=== PATIENT | male | born 1990 | race Caucasian/White ===

== ENCOUNTER 2017-11-27 19:53 | Inpatient (IN) | payer MEDICARE, MEDICAID ==
[~2017-11-27] VITALS: Ht 170.2 cm; Wt 69.9 kg
[~2017-11-27 19:53] MED LIST: ARIP10TA8 PO
[2017-11-27 20:19] LABS: BASOPHILS # (AUTO) 0.02 K/uL (0.00-0.20); BASOPHILS % (AUTO) 0.3 % (0.0-2.0); EOSINOPHILS # (AUTO) 0.09 K/uL (0.00-0.70); EOSINOPHILS % (AUTO) 1.12 % (1.0-6.0); HEMATOCRIT 43.8 % (41-53); HEMOGLOBIN 14.7 g/dL (13.5-17.5); LYMPHOCYTES # (AUTO) 2.3 K/uL (1.0-4.8); LYMPHOCYTES % (AUTO) 28.2 % (22.0-44.0); MEAN CORPUSCULAR HEMOGLOBIN 30.6 pg (26.0-34.0); MEAN CORPUSCULAR HGB CONC 33.5 G/dL (31.0-37.0); MEAN CORPUSCULAR VOLUME 91 fL (80-100); MONOCYTES # (AUTO) 0.5 K/uL (0.1-1.0); MONOCYTES % (AUTO) 5.7 % (2.0-9.0); NEUTROPHILS # (AUTO) 5.3 K/uL (1.8-7.7); NEUTROPHILS % (AUTO) 64.7 % (40.0-70.0); PLATELET COUNT (AUTO) 278 K/uL (150-450); RED BLOOD CELL COUNT(AUTO) 4.81 MIL/uL (4.50-5.90); RED CELL DISTRIBUTION WIDTH 12.7 % (11.5-14.5)
[2017-11-27 20:32] LABS: ANION GAP 8 mmol/L (8-16); CALCIUM, TOTAL 9.4 mg/dL (8.8-10.5); CARBON DIOXIDE 30 mmol/L (22-29); CHLORIDE 100 mmol/L (98-107); CREATININE 0.94 mg/dL (0.60-1.30); GLOMERULAR FILTR. RATE CALC > 60 mL/min (>60); GLUCOSE,RANDOM 133 mg/dL (70-110); POTASSIUM 3.9 mmol/L (3.5-5.1); SODIUM SERUM 138 mmol/L (136-145); UREA NITROGEN, BLOOD 18 mg/dL (7-18)
[2017-11-27 20:38] LABS: ALANINE AMINOTRANSFERASE 21 U/L (12-78); ALBUMIN 4.4 g/dL (3.4-5.0); ALKALINE PHOSPHATASE 95 U/L (46-116); ASPARTATE AMINOTRANSFERASE 16 U/L (15-37); BILIRUBIN,TOTAL 0.5 mg/dL (0.1-1.0); TOTAL PROTEIN, SERUM 7.9 g/dL (6.4-8.2)
[2017-11-27 20:59] LABS: AMPHET/METH SCREEN,URINE NEGATIVE (NEGATIVE); BARBITURATE SCREEN, URINE NEGATIVE (NEGATIVE); BENZODIAZEPINES SCREEN,URINE NEGATIVE (NEGATIVE); CANNABINOID SCREEN,URINE NEGATIVE (NEGATIVE); COCAINE SCREEN,URINE NEGATIVE (NEGATIVE); METHADONE SCREEN, URINE NEGATIVE (NEGATIVE); OPIATE SCREEN,URINE NEGATIVE (NEGATIVE)
[2017-11-27] MEDS ORDERED: LORazepam 2 MG TABLET PO ONE (21:00)
[2017-11-27] MEDS ORDERED: DiphenhydrAMINE HCL 25 MG CAPSULE PO ONE (21:00)
[2017-11-27 21:04] LABS: PHENCYCLIDINE SCREEN,URINE NEGATIVE (NEGATIVE)
[2017-11-27] MEDS ORDERED: ZOLPIDEM TARTRATE 10 MG TABLET PO PRN (21:15)
[2017-11-27] MEDS ORDERED: LORazepam 2 MG TABLET PO PRN (21:15)
[2017-11-27] MEDS ORDERED: HALOPERIDOL 5 MG TABLET PO PRN (21:15)
[2017-11-27 21:31] LABS: APPEARANCE,URINE CLEAR (CLEAR); BILIRUBIN,URINE NEGATIVE (NEGATIVE); GLUCOSE, URINE (UA) NEGATIVE (NEGATIVE); KETONES,URINE TRACE mg/dL (NEGATIVE); LEUKOCYTE ESTERASE ,URINE NEGATIVE (NEGATIVE); NITRATE,URINE NEGATIVE (NEGATIVE); OCCULT BLOOD,URINE NEGATIVE (NEGATIVE); PROTEIN,URINE NEGATIVE (NEGATIVE); UROBILINOGEN,URINE 0.2 mg/dL (<=1.0)
[2017-11-27] MEDS ORDERED: ARIPiprazole 10 MG TABLET PO ONE (21:45)
[2017-11-27 21:46] LABS: CHOL/HDL RATIO 3.2 (4.2-7.3); THYROID STIMULATING HORMONE 1.26 uIU/mL (0.36-3.74)
[2017-11-27] MEDS ORDERED: INFLUENZA VIRUS VACCINE QVS 2017-18 (3YR+)/PF 60 MCG/0.5 ML SYRINGE IM ONE (23:15)
[2017-11-28 00:13] VITALS: BP 136/82
[2017-11-28 08:26] VITALS: BP 116/69
[2017-11-28] MEDS ORDERED: ARIPiprazole ER SUSPENSION 400 MG VIAL IM SCH (09:00)
[2017-11-28] MEDS: ARIPiprazole 10 MG TABLET PO SCH (14:44)
[2017-11-28 16:01] VITALS: BP 112/69
[2017-11-29 06:37] VITALS: BP 120/62
[2017-11-29] MEDS: ARIPiprazole 10 MG TABLET PO SCH (08:20)
[2017-11-29 08:32] VITALS: BP 120/70
[2017-11-29 16:15] VITALS: BP 115/65
[2017-11-30 00:59] VITALS: BP 111/60
[2017-11-30 08:42] VITALS: BP 104/67
[2017-11-30] MEDS: ARIPiprazole 10 MG TABLET PO SCH (08:56)
[2017-11-30 15:53] VITALS: BP 113/75
[2017-12-01 06:40] VITALS: BP 105/65
[2017-12-01] MEDS: ARIPiprazole 10 MG TABLET PO SCH (08:29)
[2017-12-01 08:57] VITALS: BP 114/60
[2017-12-01 16:04] VITALS: BP 120/62
[2017-12-02 00:10] VITALS: BP 101/60
[2017-12-02] MEDS: ARIPiprazole 10 MG TABLET PO SCH (08:06)
[2017-12-02 08:23] VITALS: BP 117/60
[2017-12-02 16:08] VITALS: BP 105/61
[2017-12-03 01:10] VITALS: BP 110/61
[2017-12-03 08:02] VITALS: BP 124/64
[2017-12-03] MEDS: ARIPiprazole 10 MG TABLET PO SCH (08:06)
[2017-12-03 08:31] VITALS: BP 124/64
[2017-12-03] MEDS ORDERED: ARIP300S IM (09:13)
== END 2017-12-03 10:30 | disposition home or self-care (01) | DRG 885 ==
LOC: EMS 19:54 → B2X 21:42
DX: F31.4 Bipolar disorder, current episode depressed, severe, without psychotic features (principal); E55.9 Vitamin D deficiency, unspecified; J45.909 Unspecified asthma, uncomplicated; K59.00 Constipation, unspecified; R73.9 Hyperglycemia, unspecified; E87.6 Hypokalemia; Z79.899 Other long term (current) drug therapy
CPT/HCPCS: 84443; 99285; G0480; J0401

== ENCOUNTER 2018-05-26 17:32 | Inpatient (IN) | payer MEDICARE, MEDICAID ==
[~2018-05-26] VITALS: Ht 171.4 cm; Wt 65.3 kg
[~2018-05-26 17:32] MED LIST changes: +ARIP300S IM
[2018-05-26] MEDS ORDERED: LORazepam 2 MG TABLET PO PRN (18:45)
[2018-05-26] MEDS ORDERED: QUEtiapine FUMARATE 100 MG TABLET PO PRN (18:45)
[2018-05-26] MEDS ORDERED: ZOLPIDEM TARTRATE 10 MG TABLET PO PRN (18:45)
[2018-05-26 21:00] VITALS: BP 133/57
[2018-05-27 01:09] VITALS: BP 131/68
[2018-05-27 08:58] VITALS: BP 121/71
[2018-05-27 09:05] LABS: AMPHET/METH SCREEN,URINE NEGATIVE (NEGATIVE); BARBITURATE SCREEN, URINE NEGATIVE (NEGATIVE); BENZODIAZEPINES SCREEN,URINE NEGATIVE (NEGATIVE); CANNABINOID SCREEN,URINE NEGATIVE (NEGATIVE); COCAINE SCREEN,URINE NEGATIVE (NEGATIVE); METHADONE SCREEN, URINE NEGATIVE (NEGATIVE); OPIATE SCREEN,URINE NEGATIVE (NEGATIVE)
[2018-05-27 09:07] LABS: BASOPHILS % (AUTO) 0.4 % (0.0-2.0); EOSINOPHILS % (AUTO) 0.5 % (1.0-6.0); HEMATOCRIT 42.8 % (41-53); HEMOGLOBIN 14.7 g/dL (13.5-17.5); LYMPHOCYTES # (AUTO) 1.9 K/uL (1.0-4.8); MEAN CORPUSCULAR HEMOGLOBIN 30.7 pg (26.0-34.0); MEAN CORPUSCULAR HGB CONC 34.4 G/dL (31.0-37.0); MEAN CORPUSCULAR VOLUME 89 fL (80-100); MONOCYTES # (AUTO) 0.3 K/uL (0.1-1.0); NEUTROPHILS # (AUTO) 3.4 K/uL (1.8-7.7); NEUTROPHILS % (AUTO) 60.1 % (40.0-70.0); PLATELET COUNT (AUTO) 301 K/uL (150-450); RED CELL DISTRIBUTION WIDTH 12.9 % (11.5-14.5)
[2018-05-27 09:07] LABS: PHENCYCLIDINE SCREEN,URINE NEGATIVE (NEGATIVE)
[2018-05-27] MEDS: ARIPiprazole 10 MG TABLET PO SCH (09:11)
[2018-05-27 09:13] LABS: APPEARANCE,URINE CLEAR (CLEAR); BILIRUBIN,URINE NEGATIVE (NEGATIVE); GLUCOSE, URINE (UA) NEGATIVE (NEGATIVE); KETONES,URINE NEGATIVE (NEGATIVE); LEUKOCYTE ESTERASE ,URINE NEGATIVE (NEGATIVE); NITRATE,URINE NEGATIVE (NEGATIVE); OCCULT BLOOD,URINE NEGATIVE (NEGATIVE); PROTEIN,URINE NEGATIVE (NEGATIVE); UROBILINOGEN,URINE 0.2 mg/dL (<=1.0)
[2018-05-27 09:18] LABS: HEMOGLOBIN A1C 5.2 % (4.5-6.2)
[2018-05-27 09:34] LABS: ALANINE AMINOTRANSFERASE 34 U/L (12-78); ALBUMIN 4.3 g/dL (3.4-5.0); ALKALINE PHOSPHATASE 81 U/L (46-116); ANION GAP 5 mmol/L (8-16); ASPARTATE AMINOTRANSFERASE 20 U/L (15-37); BILIRUBIN,TOTAL 0.4 mg/dL (0.1-1.0); CALCIUM, TOTAL 9.4 mg/dL (8.8-10.5); CARBON DIOXIDE 31 mmol/L (22-29); CHLORIDE 102 mmol/L (98-107); CHOL/HDL RATIO 4.6 (4.2-7.3); CHOLESTEROL 194 mg/dL (131-200); CREATININE 0.89 mg/dL (0.60-1.30); FREE T4 (FREE THYROXINE) 1.03 ng/dL (0.76-1.46); GLOMERULAR FILTR. RATE CALC > 60 mL/min (>60); GLUCOSE,RANDOM 86 mg/dL (70-110); HDL CHOLESTEROL 42 mg/dL (40-60); LDL CHOL (CALC.) 145 mg/dL (0-130); POTASSIUM 3.6 mmol/L (3.5-5.1); SODIUM SERUM 138 mmol/L (136-145); THYROID STIMULATING HORMONE 1.72 uIU/mL (0.36-3.74); TRIGLYCERIDES 36 mg/dL (15-150); UREA NITROGEN, BLOOD 23 mg/dL (7-18)
[2018-05-27 16:22] VITALS: BP 112/61
[2018-05-27] MEDS: BENZOCAINE/MENTHOL LOZENGE PO PRN (20:24)
[2018-05-28 05:49] VITALS: BP 120/63
[2018-05-28 08:10] VITALS: BP 139/73
[2018-05-28] MEDS: ARIPiprazole 10 MG TABLET PO SCH (08:54)
[2018-05-28] MEDS ORDERED: QUEtiapine FUMARATE 25 MG TABLET PO SCH (09:00)
[2018-05-28] MEDS: BENZOCAINE/MENTHOL LOZENGE PO PRN ×2 (11:07→19:54)
[2018-05-28 16:21] VITALS: BP 114/73
[2018-05-28] MEDS ORDERED: DiphenhydrAMINE HCL 25 MG CAPSULE PO SCH (21:00)
[2018-05-29 01:44] VITALS: BP 110/60
[2018-05-29 08:00] VITALS: BP 116/66
[2018-05-29] MEDS: ARIPiprazole 15 MG TABLET PO SCH (08:24)
[2018-05-29] MEDS: BENZOCAINE/MENTHOL LOZENGE PO PRN ×2 (08:52→16:31)
[2018-05-29] MEDS ORDERED: ARIPiprazole 5 MG TABLET PO SCH (09:00)
[2018-05-29 16:13] VITALS: BP 112/70
[2018-05-29] MEDS ORDERED: ARIPiprazole 10 MG TABLET PO SCH (21:00)
[2018-05-30 06:43] VITALS: BP 132/78
[2018-05-30] MEDS: ARIPiprazole 15 MG TABLET PO SCH (08:20)
[2018-05-30 08:41] VITALS: BP 114/67
[2018-05-30] MEDS: BENZOCAINE/MENTHOL LOZENGE PO PRN ×2 (08:41→16:00)
[2018-05-30 16:41] VITALS: BP 121/63
[2018-05-31 01:53] VITALS: BP 117/72
[2018-05-31] MEDS: ARIPiprazole 15 MG TABLET PO SCH (08:01)
[2018-05-31] MEDS: BENZOCAINE/MENTHOL LOZENGE PO PRN ×2 (08:01→18:20)
[2018-05-31 08:53] VITALS: BP 111/61
[2018-05-31 16:08] VITALS: BP 118/73
[2018-06-01 07:37] VITALS: BP 115/62
[2018-06-01] MEDS: ARIPiprazole 10 MG TABLET PO SCH (08:20)
[2018-06-01] MEDS: BENZOCAINE/MENTHOL LOZENGE PO PRN ×2 (08:20→16:37)
[2018-06-01 08:26] VITALS: BP 125/72
[2018-06-01 16:17] VITALS: BP 119/62
[2018-06-02 06:22] VITALS: BP 120/69
[2018-06-02] MEDS: BENZOCAINE/MENTHOL LOZENGE PO PRN ×2 (06:36→16:00)
[2018-06-02] MEDS: ARIPiprazole 10 MG TABLET PO SCH (08:23)
[2018-06-02 08:42] VITALS: BP 117/61
[2018-06-02 16:13] VITALS: BP 113/60
[2018-06-03 01:57] VITALS: BP 108/64
[2018-06-03] MEDS: BENZOCAINE/MENTHOL LOZENGE PO PRN ×2 (08:05→18:23)
[2018-06-03] MEDS: ARIPiprazole 10 MG TABLET PO SCH (08:05)
[2018-06-03 08:38] VITALS: BP 118/66
[2018-06-03 16:04] VITALS: BP 109/68
[2018-06-04 05:51] VITALS: BP 110/68
[2018-06-04] MEDS: BENZOCAINE/MENTHOL LOZENGE PO PRN ×2 (08:10→16:22)
[2018-06-04] MEDS: ARIPiprazole 10 MG TABLET PO SCH (08:10)
[2018-06-04 08:32] VITALS: BP 109/69
[2018-06-04] MEDS ORDERED: ARIPiprazole ER SUSPENSION 400 MG VIAL IM ONE (09:00)
[2018-06-04 16:10] VITALS: BP 120/79
[2018-06-05 02:39] VITALS: BP 102/61
[2018-06-05] MEDS: ARIPiprazole 10 MG TABLET PO SCH (08:10)
[2018-06-05] MEDS: BENZOCAINE/MENTHOL LOZENGE PO PRN (08:10)
[2018-06-05 08:14] VITALS: BP 103/71
== END 2018-06-05 11:30 | disposition home or self-care (01) | DRG 885 ==
LOC: B2X 18:44
PROVIDERS: ADMIT Psychiatry & Neurology Psychiatry; ATTEND Psychiatry & Neurology Psychiatry
DX: F31.4 Bipolar disorder, current episode depressed, severe, without psychotic features (principal); R45.851 Suicidal ideations; E55.9 Vitamin D deficiency, unspecified; E78.5 Hyperlipidemia, unspecified; J45.909 Unspecified asthma, uncomplicated; K21.9 Gastro-esophageal reflux disease without esophagitis; L30.9 Dermatitis, unspecified; K59.00 Constipation, unspecified; F60.3 Borderline personality disorder; J02.9 Acute pharyngitis, unspecified; R79.89 Other specified abnormal findings of blood chemistry; M94.0 Chondrocostal junction syndrome [Tietze]; Z79.899 Other long term (current) drug therapy; Z91.14 Patient's other noncompliance with medication regimen
CPT/HCPCS: 80307; 83036; 84439; 84443; J0401

== ENCOUNTER 2018-12-14 18:05 | Inpatient (IN) | payer MEDICARE, MEDICAID ==
[~2018-12-14] VITALS: Ht 170.2 cm; Wt 69.0 kg
[~2018-12-14 18:05] MED LIST changes: -ARIP300S IM
[2018-12-14 18:47] LABS: BASOPHILS % (AUTO) 0.8 % (0.0-2.0); EOSINOPHILS % (AUTO) 0.6 % (1.0-6.0); HEMATOCRIT 41.1 % (41-53); HEMOGLOBIN 14.3 g/dL (13.5-17.5); LYMPHOCYTES # (AUTO) 2.6 K/uL (1.0-4.8); LYMPHOCYTES % (AUTO) 38.4 % (22.0-44.0); MEAN CORPUSCULAR HEMOGLOBIN 30.5 pg (26.0-34.0); MEAN CORPUSCULAR HGB CONC 34.8 G/dL (31.0-37.0); MEAN CORPUSCULAR VOLUME 88 fL (80-100); MONOCYTES # (AUTO) 0.5 K/uL (0.1-1.0); NEUTROPHILS # (AUTO) 3.7 K/uL (1.8-7.7); NEUTROPHILS % (AUTO) 53.2 % (40.0-70.0); PLATELET COUNT (AUTO) 298 K/uL (150-450); RED BLOOD CELL COUNT(AUTO) 4.67 MIL/uL (4.50-5.90); RED CELL DISTRIBUTION WIDTH 13.2 % (11.5-14.5)
[2018-12-14 18:56] LABS: ANION GAP 8 mmol/L (8-16); CALCIUM, TOTAL 9.1 mg/dL (8.8-10.5); CARBON DIOXIDE 29 mmol/L (22-29); CHLORIDE 102 mmol/L (98-107); GLOMERULAR FILTR. RATE CALC > 60 mL/min (>60); GLUCOSE,RANDOM 109 mg/dL (70-110); SODIUM SERUM 139 mmol/L (136-145); UREA NITROGEN, BLOOD 27 mg/dL (7-18)
[2018-12-14 19:03] LABS: ALANINE AMINOTRANSFERASE 23 U/L (12-78); ALBUMIN 4.3 g/dL (3.4-5.0); ALKALINE PHOSPHATASE 95 U/L (46-116); ASPARTATE AMINOTRANSFERASE 23 U/L (15-37); BILIRUBIN,TOTAL 0.2 mg/dL (0.1-1.0); TOTAL PROTEIN, SERUM 7.9 g/dL (6.4-8.2)
[2018-12-14 20:24] LABS: AMPHET/METH SCREEN,URINE NEGATIVE (NEGATIVE); BARBITURATE SCREEN, URINE NEGATIVE (NEGATIVE); BENZODIAZEPINES SCREEN,URINE NEGATIVE (NEGATIVE); CANNABINOID SCREEN,URINE NEGATIVE (NEGATIVE); COCAINE SCREEN,URINE NEGATIVE (NEGATIVE); METHADONE SCREEN, URINE NEGATIVE (NEGATIVE); OPIATE SCREEN,URINE NEGATIVE (NEGATIVE)
[2018-12-14 20:26] LABS: PHENCYCLIDINE SCREEN,URINE NEGATIVE (NEGATIVE)
[2018-12-14] MEDS ORDERED: LORazepam 2 MG/ML VIAL IM ONE (20:30)
[2018-12-14] MEDS ORDERED: HALOPERIDOL LACTATE 5 MG/ML VIAL IM ONE (20:30)
[2018-12-14] MEDS ORDERED: DiphenhydrAMINE HCL 50 MG/ML VIAL IM ONE (20:30)
[2018-12-14] MEDS ORDERED: ZOLPIDEM TARTRATE 10 MG TABLET PO PRN (22:30)
[2018-12-14] MEDS ORDERED: LORazepam 2 MG TABLET PO PRN (22:30)
[2018-12-14] MEDS ORDERED: HALOPERIDOL 5 MG TABLET PO PRN (22:30)
[2018-12-14 22:41] LABS: APPEARANCE,URINE TURBID (CLEAR); BILIRUBIN,URINE NEGATIVE (NEGATIVE); GLUCOSE, URINE (UA) NEGATIVE (NEGATIVE); KETONES,URINE NEGATIVE (NEGATIVE); LEUKOCYTE ESTERASE ,URINE NEGATIVE (NEGATIVE); NITRATE,URINE NEGATIVE (NEGATIVE); OCCULT BLOOD,URINE NEGATIVE (NEGATIVE); PROTEIN,URINE NEGATIVE (NEGATIVE); UROBILINOGEN,URINE 0.2 mg/dL (<=1.0)
[2018-12-14 23:00] LABS: CHOL/HDL RATIO 4.2 (4.2-7.3); CHOLESTEROL 191 mg/dL (131-200); FREE T4 (FREE THYROXINE) 0.92 ng/dL (0.76-1.46); HDL CHOLESTEROL 46 mg/dL (40-60); LDL CHOL (CALC.) 132 mg/dL (0-130); TRIGLYCERIDES 67 mg/dL (15-150)
[2018-12-15 00:48] VITALS: BP 106/59
[2018-12-15 10:38] VITALS: BP 122/69
[2018-12-15 16:46] VITALS: BP 99/67
[2018-12-16] MEDS ORDERED: ALBUTEROL SULFATE HFA 90 MCG/PUFF 8 GM INHALER IH PRN (08:45)
[2018-12-16] MEDS ORDERED: BISACODYL 5 MG EC TABLET PO PRN (08:45)
[2018-12-16 10:24] VITALS: BP 123/77
[2018-12-16 19:09] VITALS: BP 119/64
[2018-12-17 08:05] VITALS: BP 131/85
[2018-12-17] MEDS: CHOLECALCIFEROL (VIT D3) 1,000 UNITS TABLET PO SCH (09:00)
[2018-12-17 17:42] VITALS: BP 131/66
[2018-12-18 08:30] VITALS: BP 115/76
[2018-12-18] MEDS: CHOLECALCIFEROL (VIT D3) 1,000 UNITS TABLET PO SCH (09:20)
[2018-12-18 17:11] VITALS: BP 108/65
[2018-12-19] MEDS: CHOLECALCIFEROL (VIT D3) 1,000 UNITS TABLET PO SCH (08:35)
[2018-12-19 09:36] VITALS: BP 121/75
[2018-12-19 19:35] VITALS: BP 108/58
[2018-12-20] MEDS: CHOLECALCIFEROL (VIT D3) 1,000 UNITS TABLET PO SCH (08:02)
[2018-12-20 09:22] VITALS: BP 152/63
[2018-12-20 21:16] VITALS: BP 126/71
[2018-12-21 08:14] VITALS: BP 130/73
[2018-12-21] MEDS: CHOLECALCIFEROL (VIT D3) 1,000 UNITS TABLET PO SCH (08:24)
[2018-12-21 18:40] VITALS: BP 136/94
[2018-12-22] MEDS: CHOLECALCIFEROL (VIT D3) 1,000 UNITS TABLET PO SCH (09:18)
[2018-12-22 10:27] VITALS: BP 138/83
[2018-12-22 16:00] VITALS: BP 129/80
[2018-12-23] MEDS: CHOLECALCIFEROL (VIT D3) 1,000 UNITS TABLET PO SCH (08:03)
[2018-12-23 09:24] VITALS: BP 134/66
[2018-12-23 16:00] VITALS: BP 136/80
[2018-12-23] MEDS: QUEtiapine FUMARATE 100 MG TABLET PO SCH (21:00)
[2018-12-24] MEDS: QUEtiapine FUMARATE 100 MG TABLET PO SCH ×2 (09:00→20:41)
[2018-12-24] MEDS: CHOLECALCIFEROL (VIT D3) 1,000 UNITS TABLET PO SCH (09:00)
[2018-12-24 09:36] VITALS: BP 137/82
[2018-12-24 17:16] VITALS: BP 141/86
[2018-12-24] MEDS ORDERED: LORazepam 2 MG/ML VIAL IM ONE (17:30)
[2018-12-24] MEDS ORDERED: HALOPERIDOL LACTATE 5 MG/ML VIAL IM ONE (17:30)
[2018-12-24] MEDS ORDERED: DiphenhydrAMINE HCL 50 MG/ML VIAL IM ONE (17:30)
[2018-12-25] MEDS: QUEtiapine FUMARATE 100 MG TABLET PO SCH ×2 (09:00→20:34)
[2018-12-25] MEDS: CHOLECALCIFEROL (VIT D3) 1,000 UNITS TABLET PO SCH (09:54)
[2018-12-25 10:49] VITALS: BP 124/63
[2018-12-25 19:07] VITALS: BP 109/64
[2018-12-26 08:00] VITALS: BP 136/75
[2018-12-26] MEDS: QUEtiapine FUMARATE 100 MG TABLET PO SCH ×2 (08:16→20:35)
[2018-12-26] MEDS: CHOLECALCIFEROL (VIT D3) 1,000 UNITS TABLET PO SCH (08:16)
[2018-12-26 19:33] VITALS: BP 129/89
[2018-12-27] MEDS: CHOLECALCIFEROL (VIT D3) 1,000 UNITS TABLET PO SCH (09:00)
[2018-12-27] MEDS: QUEtiapine FUMARATE 100 MG TABLET PO SCH ×2 (09:00→20:17)
[2018-12-27 09:19] VITALS: BP 115/77
[2018-12-27 16:40] VITALS: BP 129/81
[2018-12-28] MEDS: CHOLECALCIFEROL (VIT D3) 1,000 UNITS TABLET PO SCH (08:13)
[2018-12-28] MEDS: QUEtiapine FUMARATE 100 MG TABLET PO SCH ×2 (08:16→20:34)
[2018-12-28 08:30] VITALS: BP 119/60
[2018-12-28 17:16] VITALS: BP 130/83
[2018-12-29] MEDS: CHOLECALCIFEROL (VIT D3) 1,000 UNITS TABLET PO SCH (08:05)
[2018-12-29 08:30] VITALS: BP 120/70
[2018-12-29] MEDS: QUEtiapine FUMARATE 100 MG TABLET PO SCH ×2 (08:35→20:50)
[2018-12-29 17:10] VITALS: BP 135/72
[2018-12-30 08:00] VITALS: BP 136/82
[2018-12-30] MEDS: CHOLECALCIFEROL (VIT D3) 1,000 UNITS TABLET PO SCH (08:59)
[2018-12-30] MEDS: QUEtiapine FUMARATE 100 MG TABLET PO SCH (09:00)
[2018-12-30] MEDS: ARIPiprazole 10 MG TABLET PO SCH (11:15)
[2018-12-30 21:25] VITALS: BP 116/61
[2018-12-31 08:54] VITALS: BP 141/89
[2018-12-31] MEDS: ARIPiprazole 10 MG TABLET PO SCH (09:00)
[2018-12-31] MEDS: CHOLECALCIFEROL (VIT D3) 1,000 UNITS TABLET PO SCH (09:20)
[2018-12-31 16:51] VITALS: BP 140/77
[2019-01-01 08:00] VITALS: BP 147/91
[2019-01-01 08:10] VITALS: BP 147/91
[2019-01-01] MEDS: CHOLECALCIFEROL (VIT D3) 1,000 UNITS TABLET PO SCH (08:58)
[2019-01-01] MEDS: ARIPiprazole 10 MG TABLET PO SCH (08:59)
[2019-01-01] MEDS ORDERED: HALOPERIDOL LACTATE 5 MG/ML VIAL IM ONE (17:45)
[2019-01-01] MEDS ORDERED: DiphenhydrAMINE HCL 50 MG/ML VIAL IM ONE (17:45)
[2019-01-01] MEDS ORDERED: LORazepam 2 MG/ML VIAL IM ONE (17:45)
[2019-01-01 19:01] VITALS: BP 116/50
[2019-01-01] MEDS ORDERED: HALOPERIDOL LACTATE 5 MG/ML VIAL IM PRN (19:15)
[2019-01-02 08:00] VITALS: BP 132/75
[2019-01-02] MEDS: ARIPiprazole 10 MG TABLET PO SCH (08:11)
[2019-01-02] MEDS: CHOLECALCIFEROL (VIT D3) 1,000 UNITS TABLET PO SCH (08:11)
[2019-01-02 16:58] VITALS: BP 103/61
[2019-01-03 08:00] VITALS: BP 107/72
[2019-01-03] MEDS ORDERED: ARIPiprazole 15 MG TABLET PO SCH (09:00)
[2019-01-03] MEDS: CHOLECALCIFEROL (VIT D3) 1,000 UNITS TABLET PO SCH (09:35)
[2019-01-03 19:00] VITALS: BP 111/76
[2019-01-04 08:15] VITALS: BP 121/59
[2019-01-04] MEDS: ARIPiprazole 10 MG TABLET PO SCH (08:56)
[2019-01-04] MEDS: CHOLECALCIFEROL (VIT D3) 1,000 UNITS TABLET PO SCH (08:57)
[2019-01-04 17:20] VITALS: BP 105/64
[2019-01-05 08:04] VITALS: BP 112/73
[2019-01-05] MEDS: CHOLECALCIFEROL (VIT D3) 1,000 UNITS TABLET PO SCH (08:25)
[2019-01-05] MEDS: ARIPiprazole 10 MG TABLET PO SCH (08:26)
[2019-01-05 16:43] VITALS: BP 103/63
[2019-01-06] MEDS: ARIPiprazole 10 MG TABLET PO SCH (09:01)
[2019-01-06] MEDS: CHOLECALCIFEROL (VIT D3) 1,000 UNITS TABLET PO SCH (09:01)
[2019-01-06 09:21] VITALS: BP 128/61
[2019-01-06 16:00] VITALS: BP 114/69
[2019-01-07 08:05] VITALS: BP 118/77
[2019-01-07] MEDS: CHOLECALCIFEROL (VIT D3) 1,000 UNITS TABLET PO SCH (09:36)
[2019-01-07] MEDS: ARIPiprazole 15 MG TABLET PO SCH (09:36)
[2019-01-07 16:24] VITALS: BP 113/76
[2019-01-08] MEDS: ARIPiprazole 15 MG TABLET PO SCH (08:12)
[2019-01-08] MEDS: CHOLECALCIFEROL (VIT D3) 1,000 UNITS TABLET PO SCH (08:12)
[2019-01-08] MEDS ORDERED: ARIPiprazole LAUROXIL ER SUSPENSION 882 MG/3.2 ML SYRINGE IM SCH (09:00)
[2019-01-08] MEDS ORDERED: ARIPiprazole ER SUSPENSION 400 MG PRE-FILLED DUAL CHAMBER SYRINGE IM SCH (09:00)
[2019-01-08 09:51] VITALS: BP 122/70
[2019-01-08 16:31] VITALS: BP 116/67
[2019-01-09 01:35] VITALS: BP 110/74
[2019-01-09 08:00] VITALS: BP 106/59
[2019-01-09] MEDS: ARIPiprazole 15 MG TABLET PO SCH (08:02)
[2019-01-09] MEDS: CHOLECALCIFEROL (VIT D3) 1,000 UNITS TABLET PO SCH (08:03)
[2019-01-09 16:13] VITALS: BP 113/69
[2019-01-10] MEDS: CHOLECALCIFEROL (VIT D3) 1,000 UNITS TABLET PO SCH (07:53)
[2019-01-10 08:22] VITALS: BP 115/70
[2019-01-10] MEDS ORDERED: ARIP400S3 IM (10:43)
[2019-01-10] MEDS ORDERED: VITAD1000 PO (11:07)
[2019-01-10 16:57] VITALS: BP 123/71
[2019-01-11 08:32] VITALS: BP 108/60
[2019-01-11] MEDS: CHOLECALCIFEROL (VIT D3) 1,000 UNITS TABLET PO SCH (08:48)
[2019-01-11 17:18] VITALS: BP 107/57
[2019-01-12 08:46] VITALS: BP 115/67
[2019-01-12] MEDS: CHOLECALCIFEROL (VIT D3) 1,000 UNITS TABLET PO SCH (09:02)
[2019-01-12 20:00] VITALS: BP 111/73
[2019-01-13] MEDS: CHOLECALCIFEROL (VIT D3) 1,000 UNITS TABLET PO SCH (08:11)
[2019-01-13 10:54] VITALS: BP 118/58
== END 2019-01-13 15:06 | disposition home or self-care (01) | DRG 885 ==
LOC: EMS 18:06 → 3EX 21:00
PROVIDERS: ADMIT Psychiatry & Neurology Psychiatry; ATTEND Psychiatry & Neurology Psychiatry
DX: F31.4 Bipolar disorder, current episode depressed, severe, without psychotic features (principal); E78.5 Hyperlipidemia, unspecified; F20.0 Paranoid schizophrenia; E55.9 Vitamin D deficiency, unspecified; I10 Essential (primary) hypertension; J45.909 Unspecified asthma, uncomplicated; K59.00 Constipation, unspecified; Z53.20 Procedure and treatment not carried out because of patient's decision for unspecified reasons; Z91.14 Patient's other noncompliance with medication regimen; R00.0 Tachycardia, unspecified; R79.89 Other specified abnormal findings of blood chemistry; Z28.21 Immunization not carried out because of patient refusal
CPT/HCPCS: 83036; 84439; 84443; 87081; 96372; G0378; G0480; J0401; J1200; J1630; J2060

== ENCOUNTER → 2019-04-02 | Outpatient (CLI) | payer MEDICARE, OTHER ==
[~2019-04-02] MED LIST changes: -ARIP10TA8 PO; +ARIP400S3 IM; +VITAD1000 PO
[2019-04-02 15:05] LABS: CHOL/HDL RATIO 4.6 (4.2-7.3)
== END | disposition home or self-care (01) ==
LOC: LABMN 09:15
PROVIDERS: ATTEND Psychiatry & Neurology Psychiatry
DX: F31.32 Bipolar disorder, current episode depressed, moderate (principal); F20.9 Schizophrenia, unspecified; I10 Essential (primary) hypertension; Z79.899 Other long term (current) drug therapy
CPT/HCPCS: 82947

== ENCOUNTER 2019-05-07 11:13 | Inpatient (IN) | payer MEDICARE, MEDICAID ==
[~2019-05-07] VITALS: Ht 170.2 cm; Wt 65.8 kg
[2019-05-07] MEDS ORDERED: LORazepam 2 MG TABLET PO PRN (12:15)
[2019-05-07] MEDS ORDERED: OLANZapine 5 MG RAPDIS TABLET PO PRN (12:15)
[2019-05-07] MEDS ORDERED: LOPERAMIDE HCL 2 MG CAPSULE PO PRN (12:15)
[2019-05-07] MEDS ORDERED: ACETAMINOPHEN 325 MG TABLET PO PRN (12:15)
[2019-05-07] MEDS ORDERED: MAG HYDROX/AL HYDROX/SIMETH ES 30 ML SUSPENSION UDCUP PO PRN (12:15)
[2019-05-07] MEDS ORDERED: PROMETHAZINE HCL 25 MG TABLET PO PRN (12:15)
[2019-05-07] MEDS ORDERED: HydrOXYzine PAMOATE 50 MG CAPSULE PO PRN (12:15)
[2019-05-07] MEDS ORDERED: TUBERCULIN, PURIFIED PROTEIN DERIVATIVE 5 TU/0.1 ML SYRINGE ID ONE (12:15)
[2019-05-07] MEDS ORDERED: MAGNESIUM HYDROXIDE SUSPENSION 30 ML UDCUP PO PRN (12:15)
[2019-05-07] MEDS ORDERED: ZOLPIDEM TARTRATE 10 MG TABLET PO PRN (12:15)
[2019-05-07] MEDS ORDERED: GuaiFENesin/D-METHORPHAN [SUGAR-FREE] 200-20MG/10 ML SYRUP UDCUP PO PRN (12:15)
[2019-05-07] MEDS ORDERED: LORazepam 2 MG/ML VIAL IM ONE (12:30)
[2019-05-07] MEDS ORDERED: LORazepam 2 MG/ML VIAL ONE (12:30)
[2019-05-07] MEDS ORDERED: DiphenhydrAMINE HCL 50 MG/ML VIAL IM ONE (12:30)
[2019-05-07] MEDS ORDERED: HALOPERIDOL LACTATE 5 MG/ML VIAL IM ONE (12:30)
[2019-05-07] MEDS ORDERED: HALOPERIDOL LACTATE 5 MG/ML VIAL ONE (12:31)
[2019-05-07] MEDS ORDERED: DiphenhydrAMINE HCL 50 MG/ML VIAL ONE (12:31)
[2019-05-07 16:00] VITALS: BP 114/71
[2019-05-07] MEDS ORDERED: ARIPiprazole ER SUSPENSION 400 MG PRE-FILLED DUAL CHAMBER SYRINGE IM ONE (16:00)
[2019-05-07] MEDS: THIAMINE HCL 100 MG TABLET PO SCH (17:00)
[2019-05-08 02:23] VITALS: BP 115/78
[2019-05-08] MEDS: THIAMINE HCL 100 MG TABLET PO SCH ×2 (08:20→16:41)
[2019-05-08] MEDS: FOLIC ACID 1 MG TABLET PO SCH (08:20)
[2019-05-08] MEDS: CHOLECALCIFEROL (VIT D3) 1,000 UNITS TABLET PO SCH (08:20)
[2019-05-08] MEDS: MULTIVITAMINS WITH MINERALS, THERAPEUTIC TABLET PO SCH (08:20)
[2019-05-08] MEDS: ARIPiprazole 10 MG TABLET PO SCH (08:25)
[2019-05-08 08:49] VITALS: BP 147/59
[2019-05-08 16:00] VITALS: BP 125/73
[2019-05-09 06:17] VITALS: BP 122/70
[2019-05-09 08:29] VITALS: BP 155/71
[2019-05-09 08:55] LABS: APPEARANCE,URINE CLEAR (CLEAR); BILIRUBIN,URINE NEGATIVE (NEGATIVE); GLUCOSE, URINE (UA) NEGATIVE (NEGATIVE); KETONES,URINE NEGATIVE (NEGATIVE); LEUKOCYTE ESTERASE ,URINE TRACE (NEGATIVE); NITRATE,URINE NEGATIVE (NEGATIVE); OCCULT BLOOD,URINE NEGATIVE (NEGATIVE); PH,URINE 6.5 (5.0-8.0); PROTEIN,URINE NEGATIVE (NEGATIVE); UROBILINOGEN,URINE 0.2 mg/dL (<=1.0)
[2019-05-09] MEDS: ARIPiprazole 10 MG TABLET PO SCH (09:00)
[2019-05-09 09:07] LABS: BACTERIA,URINE None Seen /HPF (None Seen); RBC,URINE None Seen /HPF (0-2); SQUAMOUS EPITHELIAL CELL,UR Rare /LPF (None Seen); WBC,URINE 0-2 /HPF (0-5)
[2019-05-09] MEDS: FOLIC ACID 1 MG TABLET PO SCH (09:14)
[2019-05-09] MEDS: THIAMINE HCL 100 MG TABLET PO SCH ×2 (09:14→17:00)
[2019-05-09] MEDS: MULTIVITAMINS WITH MINERALS, THERAPEUTIC TABLET PO SCH (09:14)
[2019-05-09] MEDS: CHOLECALCIFEROL (VIT D3) 1,000 UNITS TABLET PO SCH (09:14)
[2019-05-09 09:40] LABS: AMPHET/METH SCREEN,URINE NEGATIVE (NEGATIVE); BARBITURATE SCREEN, URINE NEGATIVE (NEGATIVE); BENZODIAZEPINES SCREEN,URINE NEGATIVE (NEGATIVE); CANNABINOID SCREEN,URINE NEGATIVE (NEGATIVE); COCAINE SCREEN,URINE NEGATIVE (NEGATIVE); METHADONE SCREEN, URINE NEGATIVE (NEGATIVE); OPIATE SCREEN,URINE NEGATIVE (NEGATIVE)
[2019-05-09 09:42] LABS: PHENCYCLIDINE SCREEN,URINE NEGATIVE (NEGATIVE)
[2019-05-09 16:22] VITALS: BP 145/89
[2019-05-10 06:04] VITALS: BP 135/78
[2019-05-10 08:19] VITALS: BP 136/82
[2019-05-10] MEDS: ARIPiprazole 10 MG TABLET PO SCH (09:00)
[2019-05-10] MEDS: CHOLECALCIFEROL (VIT D3) 1,000 UNITS TABLET PO SCH (09:54)
[2019-05-10] MEDS: FOLIC ACID 1 MG TABLET PO SCH (09:54)
[2019-05-10] MEDS: MULTIVITAMINS WITH MINERALS, THERAPEUTIC TABLET PO SCH (09:54)
[2019-05-10] MEDS: THIAMINE HCL 100 MG TABLET PO SCH ×2 (09:54→16:38)
[2019-05-10 16:51] VITALS: BP 117/60
[2019-05-11 05:37] VITALS: BP 119/78
[2019-05-11 08:14] VITALS: BP 132/83
[2019-05-11] MEDS: CHOLECALCIFEROL (VIT D3) 1,000 UNITS TABLET PO SCH (08:54)
[2019-05-11] MEDS: THIAMINE HCL 100 MG TABLET PO SCH ×2 (08:55→16:50)
[2019-05-11] MEDS: FOLIC ACID 1 MG TABLET PO SCH (08:55)
[2019-05-11] MEDS: MULTIVITAMINS WITH MINERALS, THERAPEUTIC TABLET PO SCH (08:55)
[2019-05-11] MEDS: ARIPiprazole 10 MG TABLET PO SCH (08:55)
[2019-05-11 16:22] VITALS: BP 140/79
[2019-05-12 02:06] VITALS: BP 135/85
[2019-05-12 08:30] VITALS: BP 153/107
[2019-05-12] MEDS: ARIPiprazole 10 MG TABLET PO SCH (09:00)
[2019-05-12] MEDS: MULTIVITAMINS WITH MINERALS, THERAPEUTIC TABLET PO SCH (09:52)
[2019-05-12] MEDS: CHOLECALCIFEROL (VIT D3) 1,000 UNITS TABLET PO SCH (09:52)
[2019-05-12] MEDS: THIAMINE HCL 100 MG TABLET PO SCH ×2 (09:53→16:16)
[2019-05-12] MEDS: FOLIC ACID 1 MG TABLET PO SCH (09:53)
[2019-05-12] MEDS ORDERED: CloNIDine HCL 0.1 MG TABLET PO PRN (10:00)
[2019-05-12] MEDS ORDERED: LORazepam 2 MG/ML VIAL ONE (10:06)
[2019-05-12] MEDS ORDERED: HALOPERIDOL LACTATE 5 MG/ML VIAL ONE (10:06)
[2019-05-12] MEDS ORDERED: DiphenhydrAMINE HCL 50 MG/ML VIAL ONE (10:07)
[2019-05-12] MEDS ORDERED: LORazepam 2 MG/ML VIAL IM ONE (10:15)
[2019-05-12] MEDS ORDERED: HALOPERIDOL LACTATE 5 MG/ML VIAL IM ONE (10:15)
[2019-05-12] MEDS ORDERED: DiphenhydrAMINE HCL 50 MG/ML VIAL IM ONE (10:15)
[2019-05-12 16:00] VITALS: BP 119/69
[2019-05-13] VITALS (8 sets, daily range): BP systolic 128–172; BP diastolic 71–120
[2019-05-13] MEDS: AmLODIPine BESYLATE 5 MG TABLET PO SCH ×2 (08:15→09:00)
[2019-05-13] MEDS: ARIPiprazole 10 MG TABLET PO SCH (09:00)
[2019-05-13] MEDS: CHOLECALCIFEROL (VIT D3) 1,000 UNITS TABLET PO SCH (09:07)
[2019-05-13] MEDS: FOLIC ACID 1 MG TABLET PO SCH (09:07)
[2019-05-13] MEDS: MULTIVITAMINS WITH MINERALS, THERAPEUTIC TABLET PO SCH (09:08)
[2019-05-13] MEDS: THIAMINE HCL 100 MG TABLET PO SCH ×2 (09:08→16:56)
[2019-05-14 05:31] VITALS: BP 134/88
[2019-05-14 08:04] VITALS: BP 131/86
[2019-05-14] MEDS: AmLODIPine BESYLATE 5 MG TABLET PO SCH (09:00)
[2019-05-14] MEDS: ARIPiprazole 10 MG TABLET PO SCH (09:00)
[2019-05-14] MEDS: FOLIC ACID 1 MG TABLET PO SCH (09:22)
[2019-05-14] MEDS: CHOLECALCIFEROL (VIT D3) 1,000 UNITS TABLET PO SCH (09:22)
[2019-05-14] MEDS: THIAMINE HCL 100 MG TABLET PO SCH ×2 (09:22→16:47)
[2019-05-14] MEDS: MULTIVITAMINS WITH MINERALS, THERAPEUTIC TABLET PO SCH (09:22)
[2019-05-14 17:21] VITALS: BP 147/95
[2019-05-14 20:21] VITALS: BP 134/85
[2019-05-15 06:38] VITALS: BP 155/75
[2019-05-15 08:06] VITALS: BP 140/81
[2019-05-15] MEDS: ARIPiprazole 10 MG TABLET PO SCH (08:26)
[2019-05-15] MEDS: CHOLECALCIFEROL (VIT D3) 1,000 UNITS TABLET PO SCH (08:26)
[2019-05-15] MEDS: AmLODIPine BESYLATE 5 MG TABLET PO SCH (08:26)
[2019-05-15] MEDS: THIAMINE HCL 100 MG TABLET PO SCH ×2 (08:26→16:38)
[2019-05-15] MEDS: FOLIC ACID 1 MG TABLET PO SCH (08:26)
[2019-05-15] MEDS: MULTIVITAMINS WITH MINERALS, THERAPEUTIC TABLET PO SCH (08:26)
[2019-05-15] MEDS ORDERED: ARIP10TA8 PO (15:15)
[2019-05-15 20:00] VITALS: BP 144/82
[2019-05-16 07:00] VITALS: BP 135/83
[2019-05-16] MEDS ORDERED: AMLO2.5T4 PO (07:50)
[2019-05-16] MEDS ORDERED: ARIP10TA8 PO (07:52)
[2019-05-16 08:00] VITALS: BP 138/78
[2019-05-16] MEDS: THIAMINE HCL 100 MG TABLET PO SCH (08:08)
[2019-05-16] MEDS: CHOLECALCIFEROL (VIT D3) 1,000 UNITS TABLET PO SCH (08:08)
[2019-05-16] MEDS: FOLIC ACID 1 MG TABLET PO SCH (08:08)
[2019-05-16] MEDS: MULTIVITAMINS WITH MINERALS, THERAPEUTIC TABLET PO SCH (08:08)
[2019-05-16] MEDS: AmLODIPine BESYLATE 5 MG TABLET PO SCH (08:10)
[2019-05-16] MEDS: ARIPiprazole 10 MG TABLET PO SCH (08:10)
[2019-06-04] MEDS ORDERED: ARIPiprazole ER SUSPENSION 400 MG PRE-FILLED DUAL CHAMBER SYRINGE IM SCH (09:00)
== END 2019-05-16 09:45 | disposition home or self-care (01) | DRG 885 ==
LOC: B3A 12:16
PROVIDERS: ADMIT Psychiatry & Neurology Psychiatry; ATTEND Psychiatry & Neurology Psychiatry
DX: F25.9 Schizoaffective disorder, unspecified (principal); N39.0 Urinary tract infection, site not specified; I10 Essential (primary) hypertension; J45.909 Unspecified asthma, uncomplicated; F17.210 Nicotine dependence, cigarettes, uncomplicated; E55.9 Vitamin D deficiency, unspecified; E78.5 Hyperlipidemia, unspecified; F12.90 Cannabis use, unspecified, uncomplicated; R79.89 Other specified abnormal findings of blood chemistry; Z91.14 Patient's other noncompliance with medication regimen; Z91.19 Patient's noncompliance with other medical treatment and regimen; Z79.899 Other long term (current) drug therapy; Z59.0 Homelessness
CPT/HCPCS: 80307; J0401; J1200; J1630; J2060

== ENCOUNTER 2024-06-24 13:16 | Inpatient (IN) | payer MEDICARE, MEDICAID ==
[~2024-06-24] VITALS: Ht 170.2 cm; Wt 71.9 kg
[~2024-06-24 13:16] MED LIST changes: -ARIP400S3 IM; +ARIP5TAB8 PO; -VITAD1000 PO
[2024-06-24] MEDS ORDERED: HALOPERIDOL 5 MG TABLET PO PRN (16:00)
[2024-06-24] MEDS ORDERED: LORazepam 2 MG TABLET PO PRN (16:00)
[2024-06-24] MEDS ORDERED: ZOLPIDEM TARTRATE 10 MG TABLET PO PRN (16:00)
[2024-06-24] MEDS ORDERED: MAGNESIUM HYDROXIDE SUSPENSION 30 ML UDCUP PO PRN (16:45)
[2024-06-24] MEDS ORDERED: ACETAMINOPHEN 325 MG TABLET PO PRN (16:45)
[2024-06-24] MEDS ORDERED: MAG HYDROX/ALUMINUM HYD/SIMETH ES 30 ML SUSPENSION UDCUP PO PRN (16:45)
[2024-06-24] MEDS ORDERED: OMEPRAZOLE 20 MG CAPSULE PO PRN (16:45)
[2024-06-24] MEDS ORDERED: BACITRACIN 28 GM OINTMENT TP PRN (16:45)
[2024-06-24] MEDS ORDERED: ONDANSETRON 4 MG TABLET PO PRN (16:45)
[2024-06-24] MEDS ORDERED: CloNIDine HCL 0.1 MG TABLET PO PRN (16:45)
[2024-06-24] MEDS ORDERED: IBUPROFEN 600 MG TABLET PO PRN (16:45)
[2024-06-24] MEDS ORDERED: ALBUTEROL SULFATE HFA 90 MCG/PUFF 8 GM INHALER IH PRN (16:45)
[2024-06-24] MEDS ORDERED: LOPERAMIDE HCL 2 MG CAPSULE PO PRN (16:45)
[2024-06-24] MEDS ORDERED: PETROLATUM,WHITE 28 GM JELLY TP PRN (16:45)
[2024-06-24] MEDS ORDERED: DOCUSATE SODIUM 100 MG CAPSULE PO PRN (16:45)
[2024-06-24 16:46] LABS: GLUCOMETER DEV NAME(LOC) POC.BV; POC SARS-COV2 AG, FIA NEGATIVE (NEGATIVE)
[2024-06-24 17:48] VITALS: BP 134/83; PULSE 74; RESP 18; TEMP 97.6; O2SAT 99
[2024-06-24 20:07] VITALS: BP 127/98; PULSE 76; RESP 20; TEMP 97.8; O2SAT 94
[2024-06-25] MEDS: ARIPiprazole 5 MG TABLET PO SCH (09:00)
[2024-06-25 13:56] VITALS: BP 126/79; PULSE 80; RESP 18; TEMP 97.5; O2SAT 95
[2024-06-25 20:07] VITALS: BP 122/87; PULSE 87; RESP 18; TEMP 97.8; O2SAT 96
[2024-06-26] MEDS: PNEUMOCOCCAL VACCINE POLYVALENT 0.5 ML SYRINGE [PPSV23] IM. ONE (08:12)
[2024-06-26 08:35] VITALS: BP 125/80; PULSE 92; RESP 18; TEMP 97.8; O2SAT 96
[2024-06-26 20:07] VITALS: BP 120/85; PULSE 79; RESP 19; TEMP 97.2; O2SAT 97
[2024-06-27 08:18] VITALS: BP 135/80; PULSE 93; RESP 17; TEMP 97.6; O2SAT 96
[2024-06-27 20:37] VITALS: BP 134/90; PULSE 89; RESP 18; TEMP 98.1; O2SAT 98
[2024-06-28 08:13] VITALS: BP 127/81; PULSE 85; RESP 19; TEMP 98; O2SAT 99
[2024-06-28 08:41] LABS: APPEARANCE,URINE CLEAR (CLEAR); BILIRUBIN,URINE NEGATIVE (NEGATIVE); COLOR,URINE LIGHT YELLOW (YELLOW); GLUCOSE, URINE (UA) NEGATIVE (NEGATIVE); KETONES,URINE NEGATIVE (NEGATIVE); LEUKOCYTE ESTERASE ,URINE NEGATIVE (NEGATIVE); NITRATE,URINE NEGATIVE (NEGATIVE); OCCULT BLOOD,URINE NEGATIVE (NEGATIVE); PH,URINE 7.5 (5.0-8.0); PH,URINE DRUG SCREEN 7.5 (5.0-8.0); PROTEIN,URINE NEGATIVE (NEGATIVE); SPECIFIC GRAVITIY, URINE 1.021 (1.003-1.030); UROBILINOGEN,URINE <=1.0 mg/dL (<=1.0)
[2024-06-28 08:51] LABS: ALCOHOL, URINE DRUG SCREEN NEGATIVE (NEGATIVE); AMPHET/METH SCREEN,URINE NEGATIVE (NEGATIVE); BARBITURATE SCREEN, URINE NEGATIVE (NEGATIVE); BENZODIAZEPINES SCREEN,URINE NEGATIVE (NEGATIVE); CANNABINOID SCREEN,URINE NEGATIVE (NEGATIVE); COCAINE SCREEN,URINE NEGATIVE (NEGATIVE); METHADONE SCREEN, URINE NEGATIVE (NEGATIVE); OPIATE SCREEN,URINE NEGATIVE (NEGATIVE); PHENCYCLIDINE SCREEN,URINE NEGATIVE (NEGATIVE)
[2024-06-28 20:00] VITALS: BP 124/57; PULSE 65; RESP 18; TEMP 97.8; O2SAT 98
[2024-06-29 08:11] VITALS: BP 128/81; PULSE 98; RESP 18; TEMP 98; O2SAT 99
[2024-06-29 20:09] VITALS: BP 144/82; PULSE 104; RESP 20; TEMP 98.5; O2SAT 99
[2024-06-30 08:17] VITALS: BP 139/86; PULSE 85; RESP 18; TEMP 97.8; O2SAT 96
[2024-06-30 20:05] VITALS: BP 143/79; PULSE 82; RESP 18; TEMP 97.7; O2SAT 99
[2024-07-01 08:17] VITALS: BP 114/52; PULSE 81; RESP 19; TEMP 96.7; O2SAT 98
[2024-07-01] MEDS: BENZOCAINE/MENTHOL LOZENGE PO PRN (13:22)
[2024-07-01 20:21] VITALS: BP 107/62; PULSE 64; RESP 17; TEMP 97.2; O2SAT 98
[2024-07-02 08:28] VITALS: BP 115/70; PULSE 75; RESP 17; TEMP 98; O2SAT 98
[2024-07-02 20:54] VITALS: BP 115/60; PULSE 60; RESP 18; TEMP 97.3; O2SAT 97
[2024-07-03 09:34] VITALS: BP 135/87; PULSE 99; RESP 18; TEMP 97.7; O2SAT 99
[2024-07-03 20:00] VITALS: RESP 18
[2024-07-04 08:06] VITALS: BP 134/78; PULSE 83; RESP 18; TEMP 97.2; O2SAT 98
[2024-07-04 20:04] VITALS: BP 129/73; PULSE 85; RESP 20; TEMP 97.6; O2SAT 96
== END 2024-07-05 17:10 | disposition home or self-care (01) | DRG 885 ==
LOC: B2X 15:49
PROVIDERS: ADMIT Psychiatry & Neurology Psychiatry; ATTEND Psychiatry & Neurology Psychiatry
DX: F31.5 Bipolar disorder, current episode depressed, severe, with psychotic features (principal); R45.851 Suicidal ideations; Z59.00 Homelessness unspecified; E78.5 Hyperlipidemia, unspecified; I10 Essential (primary) hypertension; Z20.822 Contact with and (suspected) exposure to COVID-19; G47.00 Insomnia, unspecified; F10.10 Alcohol abuse, uncomplicated; F12.90 Cannabis use, unspecified, uncomplicated; F41.9 Anxiety disorder, unspecified; J45.909 Unspecified asthma, uncomplicated; F94.0 Selective mutism; Z72.0 Tobacco use
CPT/HCPCS: 80307; 81003; 87081; 87481

== ENCOUNTER 2024-08-30 16:36 | Inpatient (IN) | payer MEDICARE, MEDICAID ==
[2024-08-30] MEDS ORDERED: ZOLPIDEM TARTRATE 10 MG TABLET PO PRN (17:30)
[2024-08-30] MEDS ORDERED: HALOPERIDOL 5 MG TABLET PO PRN (17:30)
[2024-08-30] MEDS ORDERED: LORazepam 2 MG TABLET PO PRN (17:30)
[2024-08-30] MEDS ORDERED: INFLUENZA VIRUS VACCINE TVS (6MO+) 2024-25/PF 45 MCG/0.5 ML SYRINGE IM. ONE (22:00)
[2024-08-31 09:35] VITALS: BP 137/85; PULSE 96; RESP 18; TEMP 98.5; O2SAT 95
[2024-08-31 20:21] VITALS: BP 112/68; PULSE 80; RESP 18; TEMP 97.8; O2SAT 97
[2024-09-01 08:53] VITALS: BP 130/73; PULSE 101; RESP 18; TEMP 97.4; O2SAT 100
[2024-09-01 20:04] VITALS: BP 115/61; PULSE 80; RESP 18; TEMP 97.1; O2SAT 95
[2024-09-02 09:59] VITALS: BP 100/65; PULSE 91; RESP 17; TEMP 97.9; O2SAT 96
[2024-09-02] MEDS: ARIPiprazole 5 MG TABLET PO SCH (14:52)
[2024-09-02 20:03] VITALS: BP 117/60; PULSE 76; RESP 18; TEMP 98; O2SAT 96
[2024-09-03 08:35] VITALS: BP 137/61; PULSE 96; RESP 18; TEMP 97.8; O2SAT 98
[2024-09-03 21:36] VITALS: RESP 17
[2024-09-04 08:42] VITALS: PULSE 82; RESP 16; TEMP 97.8; O2SAT 96
== END 2024-09-04 18:20 | disposition short-term general hospital (02) | DRG 885 ==
LOC: B2S 17:29 → B3A 19:48 → B2X 09-04 14:08
PROVIDERS: ADMIT Psychiatry & Neurology Child & Adolescent Psychiatry; ATTEND Psychiatry & Neurology Child & Adolescent Psychiatry
PROC: GZ56ZZZ Individual Psychotherapy, Supportive (ICD-10-PCS; principal; 2024-08-31)
PROC: GZ58ZZZ Individual Psychotherapy, Cognitive-Behavioral (ICD-10-PCS; 2024-08-31)
DX: F33.2 Major depressive disorder, recurrent severe without psychotic features (principal); I10 Essential (primary) hypertension; J45.909 Unspecified asthma, uncomplicated; G47.00 Insomnia, unspecified; F20.9 Schizophrenia, unspecified

== ENCOUNTER 2024-09-04 18:03 | Inpatient (IN) | payer MEDICARE, MEDICAID ==
[~2024-09-04] VITALS: Ht 167.6 cm; Wt 71.7 kg
[2024-09-04] MEDS ORDERED: ZOLPIDEM TARTRATE 10 MG TABLET PO PRN (18:30)
[2024-09-04] MEDS ORDERED: INFLUENZA VIRUS VACCINE TVS (6MO+) 2024-25/PF 45 MCG/0.5 ML SYRINGE IM. ONE (19:15)
[2024-09-04 22:02] VITALS: RESP 18
[2024-09-05 08:09] VITALS: BP 131/99; PULSE 98; RESP 18; TEMP 97.6; O2SAT 98
[2024-09-05] MEDS: HALOPERIDOL 5 MG TABLET PO PRN (08:40)
[2024-09-05] MEDS: LORazepam 2 MG TABLET PO PRN (08:40)
[2024-09-05] MEDS: ARIPiprazole 5 MG TABLET PO SCH (09:00)
[2024-09-05] MEDS ORDERED: PETROLATUM,WHITE 28 GM JELLY TP PRN (09:30)
[2024-09-05] MEDS ORDERED: GuaiFENesin/D-METHORPHAN [SUGAR-FREE] 200-20MG/10 ML SYRUP UDCUP PO PRN (09:30)
[2024-09-05] MEDS ORDERED: CloNIDine HCL 0.1 MG TABLET PO PRN (09:30)
[2024-09-05] MEDS ORDERED: NICOTINE 14 MG/24 HOUR PATCH TD PRN (09:30)
[2024-09-05] MEDS ORDERED: LOPERAMIDE HCL 2 MG CAPSULE PO PRN (09:30)
[2024-09-05] MEDS ORDERED: ALBUTEROL SULFATE HFA 90 MCG/PUFF 8 GM INHALER IH PRN (09:30)
[2024-09-05] MEDS ORDERED: MAGNESIUM HYDROXIDE SUSPENSION 30 ML UDCUP PO PRN (09:30)
[2024-09-05] MEDS ORDERED: DOCUSATE SODIUM 100 MG CAPSULE PO PRN (09:30)
[2024-09-05] MEDS ORDERED: ONDANSETRON 4 MG TABLET PO PRN (09:30)
[2024-09-05] MEDS ORDERED: MAG HYDROX/ALUMINUM HYD/SIMETH ES 30 ML SUSPENSION UDCUP PO PRN (09:30)
[2024-09-05] MEDS ORDERED: ACETAMINOPHEN 325 MG TABLET PO PRN (09:30)
[2024-09-05] MEDS ORDERED: IBUPROFEN 400 MG TABLET PO PRN (09:30)
[2024-09-05 21:00] VITALS: BP 127/100; PULSE 77; RESP 17; TEMP 98; O2SAT 100
[2024-09-06 09:40] VITALS: BP 101/60; PULSE 85; RESP 18; TEMP 97.9; O2SAT 94
[2024-09-07 08:11] VITALS: BP 127/78; PULSE 93; RESP 18; TEMP 97.6; O2SAT 98
[2024-09-07 08:58] LABS: APPEARANCE,URINE CLEAR (CLEAR); BILIRUBIN,URINE NEGATIVE (NEGATIVE); COLOR,URINE COLORLESS (YELLOW); GLUCOSE, URINE (UA) NEGATIVE (NEGATIVE); KETONES,URINE NEGATIVE (NEGATIVE); LEUKOCYTE ESTERASE ,URINE NEGATIVE (NEGATIVE); NITRATE,URINE NEGATIVE (NEGATIVE); OCCULT BLOOD,URINE NEGATIVE (NEGATIVE); PROTEIN,URINE NEGATIVE (NEGATIVE); UROBILINOGEN,URINE <=1.0 mg/dL (<=1.0)
[2024-09-07 09:12] LABS: ALCOHOL, URINE DRUG SCREEN NEGATIVE (NEGATIVE); AMPHET/METH SCREEN,URINE NEGATIVE (NEGATIVE); BARBITURATE SCREEN, URINE NEGATIVE (NEGATIVE); BENZODIAZEPINES SCREEN,URINE NEGATIVE (NEGATIVE); CANNABINOID SCREEN,URINE NEGATIVE (NEGATIVE); COCAINE SCREEN,URINE NEGATIVE (NEGATIVE); METHADONE SCREEN, URINE NEGATIVE (NEGATIVE); OPIATE SCREEN,URINE NEGATIVE (NEGATIVE); PHENCYCLIDINE SCREEN,URINE NEGATIVE (NEGATIVE)
[2024-09-08 08:05] VITALS: BP 140/76; PULSE 72; RESP 17; TEMP 99.1; O2SAT 97
[2024-09-08] MEDS ORDERED: ARIP5TAB37 PO (09:10)
== END 2024-09-08 12:59 | disposition left against medical advice (07) | DRG 885 ==
LOC: B2X 18:30
PROVIDERS: ADMIT Psychiatry & Neurology Child & Adolescent Psychiatry; ATTEND Psychiatry & Neurology Child & Adolescent Psychiatry
PROC: GZHZZZZ Group Psychotherapy (ICD-10-PCS; principal; 2024-09-05)
PROC: GZ51ZZZ Individual Psychotherapy, Behavioral (ICD-10-PCS; 2024-09-05)
DX: F25.0 Schizoaffective disorder, bipolar type (principal); R45.851 Suicidal ideations; F41.9 Anxiety disorder, unspecified; G47.00 Insomnia, unspecified; I10 Essential (primary) hypertension; J45.909 Unspecified asthma, uncomplicated; Z53.29 Procedure and treatment not carried out because of patient's decision for other reasons; F32.9 Major depressive disorder, single episode, unspecified; Z79.899 Other long term (current) drug therapy
CPT/HCPCS: 80307; 81003; 90686

== ENCOUNTER 2024-12-10 15:21 | Inpatient (IN) | payer MEDICARE, MEDICAID ==
[~2024-12-10] VITALS: Ht 170.2 cm; Wt 71.7 kg
[~2024-12-10 15:21] MED LIST changes: +ARIP5TAB37 PO; -ARIP5TAB8 PO
[2024-12-10] MEDS ORDERED: ZOLPIDEM TARTRATE 10 MG TABLET PO PRN (16:15)
[2024-12-10] MEDS ORDERED: HALOPERIDOL 5 MG TABLET PO PRN (16:15)
[2024-12-10 17:10] LABS: GLUCOMETER DEV NAME(LOC) POC.BV; POC SARS-COV2 AG, FIA NEGATIVE (NEGATIVE)
[2024-12-10 17:15] VITALS: BP 134/71; PULSE 86; RESP 18; TEMP 97.7; O2SAT 98
[2024-12-10] MEDS ORDERED: DOCUSATE SODIUM 100 MG CAPSULE PO PRN (20:15)
[2024-12-10] MEDS ORDERED: OMEPRAZOLE 20 MG CAPSULE PO PRN (20:15)
[2024-12-10] MEDS ORDERED: IBUPROFEN 600 MG TABLET PO PRN (20:15)
[2024-12-10] MEDS ORDERED: ACETAMINOPHEN 325 MG TABLET PO PRN (20:15)
[2024-12-10] MEDS ORDERED: CloNIDine HCL 0.1 MG TABLET PO PRN (20:15)
[2024-12-10] MEDS ORDERED: ALBUTEROL SULFATE HFA 90 MCG/PUFF 8 GM INHALER IH PRN (20:15)
[2024-12-10] MEDS ORDERED: ONDANSETRON 4 MG TABLET PO PRN (20:15)
[2024-12-10] MEDS ORDERED: PETROLATUM,WHITE 28 GM JELLY TP PRN (20:15)
[2024-12-10] MEDS ORDERED: LOPERAMIDE HCL 2 MG CAPSULE PO PRN (20:15)
[2024-12-10] MEDS ORDERED: MAG HYDROX/ALUMINUM HYD/SIMETH ES 30 ML SUSPENSION UDCUP PO PRN (20:15)
[2024-12-10] MEDS ORDERED: MAGNESIUM HYDROXIDE SUSPENSION 30 ML UDCUP PO PRN (20:15)
[2024-12-10] MEDS ORDERED: BENZOCAINE/MENTHOL LOZENGE PO PRN (20:15)
[2024-12-10] MEDS ORDERED: BACITRACIN 28 GM OINTMENT TP PRN (20:15)
[2024-12-10 20:21] VITALS: BP 134/71; PULSE 85; RESP 18; TEMP 97.7; O2SAT 97
[2024-12-11 08:54] VITALS: BP 149/89; PULSE 89; RESP 18; TEMP 98; O2SAT 98
[2024-12-11] MEDS: INFLUENZA VIRUS VACCINE TVS (6MO+) 2024-25/PF 45 MCG/0.5 ML SYRINGE IM. ONE (16:16)
[2024-12-11 20:20] VITALS: BP 116/73; PULSE 91; RESP 19; TEMP 97.9; O2SAT 97
[2024-12-12 09:41] VITALS: RESP 16
[2024-12-12 20:14] VITALS: BP 129/93; PULSE 67; RESP 18; TEMP 97.2; O2SAT 98
[2024-12-13 08:12] VITALS: BP 117/77; PULSE 80; RESP 16; TEMP 97.4; O2SAT 97
[2024-12-13 20:46] VITALS: BP 122/62; PULSE 61; RESP 18; TEMP 97.4; O2SAT 98
[2024-12-14 08:20] VITALS: BP 127/95; PULSE 121; RESP 17; TEMP 93.6; O2SAT 97
[2024-12-14 22:40] VITALS: BP 124/78; PULSE 88; RESP 18; TEMP 96.6; O2SAT 97
[2024-12-15 15:00] VITALS: BP 123/62; PULSE 92; RESP 17; TEMP 97.5; O2SAT 97
[2024-12-15 20:14] VITALS: BP 137/84; PULSE 82; RESP 18; TEMP 97.8; O2SAT 98
[2024-12-16 08:30] VITALS: BP 136/70; PULSE 103; TEMP 97.8; O2SAT 98
[2024-12-16 20:18] VITALS: BP 99/63; PULSE 63; RESP 18; TEMP 98.4; O2SAT 97
[2024-12-17 08:23] VITALS: BP 132/82; PULSE 96; RESP 17; TEMP 97.7; O2SAT 95
[2024-12-17] MEDS: ARIPiprazole 5 MG TABLET PO SCH (09:00)
[2024-12-17 20:08] VITALS: BP 132/90; PULSE 78; RESP 19; TEMP 97.6; O2SAT 97
[2024-12-18 08:19] VITALS: BP 120/69; PULSE 74; RESP 19; TEMP 97.7; O2SAT 95
[2024-12-18 10:17] LABS: APPEARANCE,URINE CLEAR (CLEAR); BILIRUBIN,URINE NEGATIVE (NEGATIVE); COLOR,URINE LIGHT YELLOW (YELLOW); GLUCOSE, URINE (UA) NEGATIVE (NEGATIVE); KETONES,URINE NEGATIVE (NEGATIVE); LEUKOCYTE ESTERASE ,URINE NEGATIVE (NEGATIVE); NITRATE,URINE NEGATIVE (NEGATIVE); OCCULT BLOOD,URINE NEGATIVE (NEGATIVE); PH,URINE 7.5 (5.0-8.0); PH,URINE DRUG SCREEN 7.5 (5.0-8.0); PROTEIN,URINE TRACE mg/dL (NEGATIVE); SPECIFIC GRAVITIY, URINE 1.017 (1.003-1.030); UROBILINOGEN,URINE <=1.0 mg/dL (<=1.0)
[2024-12-18 10:26] LABS: ALCOHOL, URINE DRUG SCREEN NEGATIVE (NEGATIVE); AMPHET/METH SCREEN,URINE NEGATIVE (NEGATIVE); BARBITURATE SCREEN, URINE NEGATIVE (NEGATIVE); BENZODIAZEPINES SCREEN,URINE NEGATIVE (NEGATIVE); CANNABINOID SCREEN,URINE NEGATIVE (NEGATIVE); COCAINE SCREEN,URINE NEGATIVE (NEGATIVE); METHADONE SCREEN, URINE NEGATIVE (NEGATIVE); OPIATE SCREEN,URINE NEGATIVE (NEGATIVE); PHENCYCLIDINE SCREEN,URINE NEGATIVE (NEGATIVE)
[2024-12-18 20:00] VITALS: BP 120/61; PULSE 73; RESP 18; TEMP 97.3; O2SAT 96
[2024-12-19 09:23] VITALS: BP 113/70; PULSE 98; RESP 16; TEMP 96.5; O2SAT 95
[2024-12-19 20:31] VITALS: RESP 16
[2024-12-20 08:20] VITALS: BP 123/77; PULSE 96; RESP 16; TEMP 97.9
[2024-12-20 23:09] VITALS: RESP 16
[2024-12-21 08:08] VITALS: BP 138/74; PULSE 86; RESP 16; TEMP 98.2; O2SAT 98
[2024-12-21 20:11] VITALS: BP 128/85; PULSE 94; RESP 18; TEMP 97.9
[2024-12-22] MEDS: LORazepam 2 MG TABLET PO PRN (11:05)
[2024-12-22 13:04] VITALS: BP 116/62; PULSE 90; RESP 18; TEMP 98.4; O2SAT 99
[2024-12-22 20:11] VITALS: BP 124/85; PULSE 77; RESP 18; TEMP 98.5; O2SAT 97
[2024-12-23 08:50] VITALS: BP 147/82; PULSE 72; RESP 19; TEMP 98; O2SAT 97
[2024-12-23 20:16] VITALS: BP 137/94; PULSE 85; RESP 18; TEMP 98; O2SAT 98
[2024-12-24 08:08] VITALS: BP 137/77; PULSE 90; RESP 17; TEMP 98.3; O2SAT 97
[2024-12-24 20:00] VITALS: BP 121/72; PULSE 89; RESP 18; TEMP 98.3; O2SAT 97
[2024-12-25 00:35] VITALS: BP 131/71; PULSE 60; RESP 18; TEMP 97.2; O2SAT 97
[2024-12-25 08:38] VITALS: BP 138/89; PULSE 100; RESP 17; TEMP 98.9; O2SAT 97
[2024-12-25 20:10] VITALS: BP 115/70; PULSE 61; RESP 16; TEMP 98.2; O2SAT 95
[2024-12-26 08:30] VITALS: BP 115/68; PULSE 100; RESP 16; TEMP 98; O2SAT 97
[2024-12-26] MEDS ORDERED: ARIP5TAB37 PO (09:50)
== END 2024-12-26 17:00 | disposition home or self-care (01) | DRG 881 ==
LOC: B2X 16:34 → B2S 12-25 01:20
PROVIDERS: ADMIT Psychiatry & Neurology Psychiatry; ATTEND Psychiatry & Neurology Psychiatry
DX: F32.9 Major depressive disorder, single episode, unspecified (principal); R45.851 Suicidal ideations; I10 Essential (primary) hypertension; F41.9 Anxiety disorder, unspecified; G47.00 Insomnia, unspecified; Z20.822 Contact with and (suspected) exposure to COVID-19; F10.10 Alcohol abuse, uncomplicated; F12.90 Cannabis use, unspecified, uncomplicated; E78.5 Hyperlipidemia, unspecified; J45.909 Unspecified asthma, uncomplicated; F22 Delusional disorders; K59.00 Constipation, unspecified
CPT/HCPCS: 80307; 81003; 90686

== ENCOUNTER 2025-06-02 15:45 | Inpatient (IN) | payer MEDICARE, MEDICAID ==
[~2025-06-02] VITALS: Ht 175.3 cm; Wt 72.7 kg
[~2025-06-02 15:45] MED LIST changes: +ARIP15TA2 PO; -ARIP5TAB37 PO
[2025-06-02 16:19] LABS: PLATELET COUNT (AUTO) 324 K/uL (150-450); RED BLOOD CELL COUNT(AUTO) 4.84 MIL/uL (4.50-5.90); RED CELL DISTRIBUTION WIDTH 13.3 % (11.5-14.5); WHITE BLOOD COUNT (AUTO) 8.0 K/uL (4.5-11.0)
[2025-06-02 16:28] LABS: CALCIUM, TOTAL 8.7 mg/dL (8.8-10.5); CREATININE 1.08 mg/dL (0.60-1.30); GLOMERULAR FILTR. RATE CALC > 60 mL/min (>60); GLUCOSE,RANDOM 114 mg/dL (70-110); SODIUM SERUM 138 mmol/L (136-145); UREA NITROGEN, BLOOD 20 mg/dL (7-18)
[2025-06-02 16:28] LABS: COVID AG,FIA SOURCE NASAL SWAB
[2025-06-02 16:53] LABS: SARS-COV2 (COVID) ANTIGEN,FIA Negative (Negative)
[2025-06-02 17:40] LABS: APPEARANCE,URINE CLEAR (CLEAR); GLUCOSE, URINE (UA) NEGATIVE (NEGATIVE); LEUKOCYTE ESTERASE ,URINE NEGATIVE (NEGATIVE); NITRATE,URINE NEGATIVE (NEGATIVE); OCCULT BLOOD,URINE NEGATIVE (NEGATIVE); PH,URINE DRUG SCREEN 6.0 (5.0-8.0); SPECIFIC GRAVITIY, URINE 1.012 (1.003-1.030)
[2025-06-02 17:46] LABS: ALCOHOL, URINE DRUG SCREEN NEGATIVE (NEGATIVE); AMPHET/METH SCREEN,URINE NEGATIVE (NEGATIVE); BARBITURATE SCREEN, URINE NEGATIVE (NEGATIVE); CANNABINOID SCREEN,URINE NEGATIVE (NEGATIVE); COCAINE SCREEN,URINE NEGATIVE (NEGATIVE); METHADONE SCREEN, URINE NEGATIVE (NEGATIVE)
[2025-06-02] MEDS ORDERED: ZOLPIDEM TARTRATE 10 MG TABLET PO PRN (21:45)
[2025-06-03 01:22] VITALS: O2SAT 100
[2025-06-03 02:09] VITALS: RESP 18
[2025-06-03 08:43] VITALS: BP 119/86; PULSE 97; RESP 19; TEMP 98.2; O2SAT 96
[2025-06-03] MEDS ORDERED: OMEPRAZOLE 20 MG CAPSULE PO PRN (11:45)
[2025-06-03] MEDS ORDERED: ACETAMINOPHEN 325 MG TABLET PO PRN (11:45)
[2025-06-03] MEDS ORDERED: MAG HYDROX/ALUMINUM HYD/SIMETH ES 30 ML SUSPENSION UDCUP PO PRN (11:45)
[2025-06-03] MEDS ORDERED: BACITRACIN 28 GM OINTMENT TP PRN (11:45)
[2025-06-03] MEDS ORDERED: LOPERAMIDE HCL 2 MG CAPSULE PO PRN (11:45)
[2025-06-03] MEDS ORDERED: BENZOCAINE/MENTHOL [CEPACOL] LOZENGE PO PRN (11:45)
[2025-06-03] MEDS ORDERED: MAGNESIUM HYDROXIDE SUSPENSION 30 ML UDCUP PO PRN (11:45)
[2025-06-03] MEDS ORDERED: PETROLATUM,WHITE 28 GM JELLY TP PRN (11:45)
[2025-06-03] MEDS ORDERED: DOCUSATE SODIUM 100 MG CAPSULE PO PRN (11:45)
[2025-06-03] MEDS ORDERED: ONDANSETRON 4 MG TABLET PO PRN (11:45)
[2025-06-03] MEDS ORDERED: IBUPROFEN 600 MG TABLET PO PRN (11:45)
[2025-06-03] MEDS ORDERED: ALBUTEROL SULFATE HFA 90 MCG/PUFF 8 GM INHALER IH PRN (11:45)
[2025-06-03 20:45] VITALS: RESP 18
[2025-06-04 08:23] VITALS: BP 135/89; PULSE 102; RESP 18; TEMP 97.9; O2SAT 97
[2025-06-04 20:08] VITALS: BP 136/74; PULSE 60; RESP 19; TEMP 97.8; O2SAT 97
[2025-06-05 08:40] VITALS: BP 135/61; PULSE 71; RESP 17; TEMP 98.3; O2SAT 96
== END 2025-06-05 16:03 | disposition home or self-care (01) | DRG 885 ==
LOC: EMS 15:45 → B2S 06-03 01:18 → B2X 06-03 10:00
PROVIDERS: ADMIT Psychiatry & Neurology Psychiatry; ATTEND Psychiatry & Neurology Psychiatry
DX: F20.9 Schizophrenia, unspecified (principal); R45.851 Suicidal ideations; I10 Essential (primary) hypertension; F41.9 Anxiety disorder, unspecified; G47.00 Insomnia, unspecified; F10.10 Alcohol abuse, uncomplicated; F12.90 Cannabis use, unspecified, uncomplicated; E78.5 Hyperlipidemia, unspecified; K59.00 Constipation, unspecified; Z20.822 Contact with and (suspected) exposure to COVID-19; Z72.0 Tobacco use; Z91.09 Other allergy status, other than to drugs and biological substances; Z79.899 Other long term (current) drug therapy
CPT/HCPCS: 80048; 80307; 81003; 85025; 99285; G0480